=== PATIENT | male | born 1975 | race Caucasian/White ===

== ENCOUNTER → 2019-08-31 | Outpatient (CLI) | payer MEDICARE | END | disposition home or self-care (01) | LOC: LABWHC1 10:05 | PROVIDERS: ATTEND Surgery | DX: Z11.59 Encounter for screening for other viral diseases (principal) ==

== ENCOUNTER 2019-09-03 07:55 | Day surgery (SDC) | payer MEDICARE ==
[2019-08-31 09:29] VITALS: BMI 27.1
[~2019-09-03 07:55] MED LIST: ACETAMINOPHEN TAB 500 MG TAB PO ONE; DEXAMETHASONE SOD PHOSPHATE 10 MG/ML 1 ML VIAL IV ONE; HEPARIN SODIUM,PORCINE 5,000 UNIT/ML 1 ML VIAL SQ ONE; LACTATED RINGERS 1,000 ML IV SCH; LIDOCAINE 1% (10MG/ML) FOR IV START INTRADERMA PRN; SCOPOLAMINE 1.5MG/72HR PATCH TRANSDERM ONE
[2019-09-03 08:36] VITALS: RESP 16
[2019-09-03] MEDS: ONDANSETRON 4 MG/2 ML VIAL IVP ONE ×2 (09:00→11:49)
[2019-09-03] MEDS ORDERED: MIDAZOLAM 2 MG/2 ML VIAL IVP ONE (09:10)
[2019-09-03] MEDS ORDERED: fentaNYL (PF) 50 MCG/ML 2 ML AMP ONE (09:32)
[2019-09-03] MEDS ORDERED: MIDAZOLAM 2 MG/2 ML VIAL ONE (09:32)
[2019-09-03] MEDS ORDERED: PROPOFOL 10 MG/ML 20 ML VIAL IV ONE (09:32)
[2019-09-03] MEDS ORDERED: ROCURONIUM BROMIDE 10 MG/ML 5 ML VIAL IV ONE (09:32)
[2019-09-03] MEDS ORDERED: NEOSTIGMINE 1 MG/ML 10 ML VIAL ONE (09:32)
[2019-09-03] MEDS ORDERED: LIDOCAINE 1% INJ 10MG/ML (20 ML MDV) ONE (09:32)
[2019-09-03] MEDS ORDERED: GLYCOPYRROLATE 0.2 MG/ML 2 ML VIAL ONE (09:32)
[2019-09-03] MEDS ORDERED: ePHEDrine SULFATE/0.9% NACL/PF 50 MG/5 ML SYRINGE IV ONE (09:32)
[2019-09-03] MEDS ORDERED: SUCCINYLCHOLINE CHLORIDE 100 MG/5 ML SYR IV ONE (09:32)
[2019-09-03] MEDS ORDERED: BUPIVACAIN-EPI 0.25%-1:200,000 30 ML VIAL SQ ONE (09:37)
[2019-09-03] MEDS ORDERED: LACTATED RINGERS 1,000 ML IV ONE (10:15)
[2019-09-03 11:32] VITALS: TEMP 97
[2019-09-03] MEDS ORDERED: HYDROcodone/APAP 5-325MG 1 EACH TAB PO PRN (11:45)
[2019-09-03] MEDS: HYDROmorphone 0.5 MG/0.5 ML SYRINGE IVP PRN ×2 (11:45→11:58)
[2019-09-03] MEDS ORDERED: NALOXONE 0.4 MG/ML 1 ML VIAL IV PRN (11:45)
--- NOTE | 2019-09-03 11:49 | P.OP ---
Date of Procedure: 09/03/19 Procedure(s) Performed: PREOPERATIVE DIAGNOSIS: Right scrotal inguinal hernia POSTOPERATIVE DIAGNOSIS: Right indirect scrotal hernia with small direct inguinal hernia PROCEDURE: Right inguinal hernia repair with mesh SURGEON: Patrice EBL: Minimal ANESTHESIA: General COMPLICATIONS: None OPERATIVE PROCEDURE: Patient was placed in the operating table in the supine position and placed under general anesthesia. An oblique incision was made in the 8 groin. Dissection down through the subcutaneous tissues took place using electrocautery. The external oblique fascia was incised using a scalpel. This opening was lengthened using the Metzenbaum scissors. The spermatic cord was encircled with a Urbano drain. The structures were identified and preserved. Careful dissection revealed a very large indirect hernia sac. Significant scarring of the sac was noted. This was carefully dissected away from the spermatic cord structures. Medially the patient had a direct hernia as well. This appeared to be containing a small portion of the bladder. The hernia sac was opened. There was no bowel present within the hernia sac. High ligation of the hernia sac took place using interrupted 0 silk stick tie sutures. The direct hernia was reduced back into the pre-peroneal space. Blunt dissection occurred in the preperitoneal space. The large Prolene hernia system was utilized with the circular portion of the mesh placed in the preperitoneal space and flattened out. The outer oval piece of the mesh was sutured to the pubic tubercle the folding edge of the inguinal ligament and the conjoined tendon using 2-0 Nurolon sutures. A slit was created in the mesh and the mesh was wrapped around the spermatic cord and sutured back to itself. The external oblique was then reapproximated using a running 2-0 Vicryl suture. The subcutaneous tissues were reapproximated using a 3-0 Vicryl sutures. The skin was closed using 4-0 Monocryl sutures. Skin glue was then applied. DISPOSITION: Stable to recovery room
[2019-09-03 12:55] VITALS: BP 137/83; PULSE 67
== END 2019-09-03 13:29 | disposition home or self-care (01) ==
LOC: OR 07:55
PROVIDERS: ATTEND Surgery
DX: K40.90 Unilateral inguinal hernia, without obstruction or gangrene, not specified as recurrent (principal); F41.9 Anxiety disorder, unspecified; E66.9 Obesity, unspecified; F41.0 Panic disorder [episodic paroxysmal anxiety]; F32.9 Major depressive disorder, single episode, unspecified; G47.30 Sleep apnea, unspecified; K21.9 Gastro-esophageal reflux disease without esophagitis; I10 Essential (primary) hypertension; K42.9 Umbilical hernia without obstruction or gangrene; F17.210 Nicotine dependence, cigarettes, uncomplicated; Z68.27 Body mass index [BMI] 27.0-27.9, adult; Z98.84 Bariatric surgery status; Z79.899 Other long term (current) drug therapy; Z79.1 Long term (current) use of non-steroidal anti-inflammatories (NSAID); Z82.49 Family history of ischemic heart disease and other diseases of the circulatory system
CPT/HCPCS: 49505; 88305; C1781; J2250; J1644; J1100; J2710; J0690; J2405; J2001; J3010; J0330; J2704; J1170

== ENCOUNTER 2020-09-28 01:39 | Emergency (ER) | payer MEDICARE ==
[2020-09-28 01:45] VITALS: BP 185/116; PULSE 77; RESP 20; TEMP 97.9
[2020-09-28 02:16] LABS: Appearance,Urine Clear (Clear); Bilirubin,Urine Negative (Negative); Blood,Urine Negative (Negative); Color,Urine Yellow; Glucose,Urine (UA) Negative (Negative); Ketones,Urine Negative (Negative); Leukocyte Esterase,Urine Negative (Negative); Nitrite,Urine Negative (Negative); PH, Urine 5.5 (5.0-8.0); Protein,Urine Negative (Negative); Specific Gravity,Urine 1.017 (1.001-1.035); Urobilinogen,Urine <2.0 mg/dL (<2.0)
[2020-09-28 02:25] LABS: Amphetamine Screen,Urine Not Detected (NotDetected); Barbiturate Screen,Urine Not Detected (NotDetected); Benzodiazepines Screen,Urine Not Detected (NotDetected); Cocaine Screen,Urine Not Detected (NotDetected); Methadone Screen, Urine Not Detected (NotDetected); Opiate Screen,Urine Not Detected (NotDetected); Oxycodone Screen, Urine Not Detected (NotDetected); Phencyclidine Screen,Urine Not Detected (NotDetected); Tricyclic Antidepressant,Urine Not Detected (NotDetected); Urn Cannabinoid Scrn Not Detected (NotDetected)
--- NOTE | 2020-09-28 05:48 | ED ---
Psych HPI - General Chief Complaint: Psychiatric Symptoms Stated Complaint: Mental health Time Seen by Provider: 09/28/20 01:58 Source: patient, police Mode of arrival: ambulatory - History of Present Illness Initial Comments: This patient is a 44-year-old man who is here to have psychiatric evaluation after he had made some suicidal statements while having a conversation with his parents. The patient does admit that he is been having some depression over the past months in relation to the pandemic and the isolation of this cause. He admits he did make some statements that his parents take as being suicidal. He states he does not feel he would harm himself. Complaint: feels depressed -: month(s) Associated Psychiatric Symptoms: depression History of same: Yes Quality: intermittent Improves With: none Worsens With: none Context: significant life stressor - Related Data Home Medications Medication Instructions Recorded Confirmed ALPRAZolam [Xanax] 0.5 mg PO TID PRN 08/31/19 09/03/19 Ascorbic Acid [Vitamin C] 500 mg PO DAILY 08/31/19 09/03/19 Calcium Carbonate [Tums] 500 mg PO DIRECTED PRN 08/31/19 09/03/19 Dextroamphetamine/Amphetamine 20 mg PO DAILY 08/31/19 09/03/19 [Adderall] Gabapentin [Neurontin] 100 mg PO TID PRN 08/31/19 09/03/19 Iron Supplement (Unknown Dose) 1 tab PO DAILY 08/31/19 09/03/19 Multivit-Min/Folic/Vit K/Lycop 1 each PO DAILY 08/31/19 09/03/19 [Men's Multivitamin Tablet] [place]ze[place]-3 Fatty Acids/Fish Oil [Fish 1 each PO DAILY 08/31/19 09/03/19 Oil 1,000 mg Softgel] Potassium (Unknown Dose) 1 tab PO DAILY 08/31/19 09/03/19 Previous Rx's Medication Instructions Recorded oxyCODONE HCL [OxyIR] 5 mg PO Q6H PRN 3 Days #6 tab 09/03/19 Allergies Allergy/AdvReac Type Severity Reaction Status Date / Time No Known Allergies Allergy Verified 09/28/20 01:45 Review of Systems ROS Statement: Those systems with pertinent positive or pertinent negative responses have been documented in the HPI. ROS Other: All systems not noted in ROS Statement are negative. Constitutional: Denies: fever Respiratory: Denies: cough, dyspnea Cardiovascular: Denies: chest pain, palpitations Gastrointestinal: Denies: abdominal pain, vomiting Genitourinary: Denies: dysuria Musculoskeletal: Denies: back pain Neurological: Denies: headache, weakness Psychiatric: Reports: depression. Denies: auditory hallucinations, visual hallucinations, homicidal thoughts, suicidal thoughts Past Medical History Past Medical History: GERD/Reflux Additional Past Medical History / Comment(s): Hx gastric sleeve- states HTN resolved with wt loss, occasional gerd, sciatica pain., Hx phlebitis?., right inguinal hernia. History of Any Multi-Drug Resistant Organisms: None Reported Past Surgical History: Bariatric Surgery, Hernia Repair Additional Past Surgical History / Comment(s): Gastric Sleeve (May) Past Anesthesia/Blood Transfusion Reactions: No Reported Reaction Additional Past Anesthesia/Blood Transfusion Reaction / Comment(s): states they were yelling to wake him up Past Psychological History: Anxiety, Depression Smoking Status: Current every day smoker Past Alcohol Use History: Heavy Past Drug Use History: None Reported - Past Family History Mother Family Medical History: No Reported History General Exam Limitations: no limitations General appearance: alert, in no apparent distress Head exam: Present: atraumatic, normocephalic Eye exam: Present: normal appearance. Absent: scleral icterus, conjunctival injection Respiratory exam: Present: normal lung sounds bilaterally. Absent: respiratory distress, wheezes, rales, rhonchi, stridor Cardiovascular Exam: Present: regular rate, normal rhythm, normal heart sounds. Absent: systolic murmur, diastolic murmur, rubs, gallop GI/Abdominal exam: Present: soft. Absent: tenderness Extremities exam: Present: normal inspection, normal capillary refill Neurological exam: Present: alert Psychiatric exam: Present: normal affect, normal mood. Absent: agitated, anxious, flat affect, manic, homicidal ideation, suicidal ideation Skin exam: Present: warm, dry, intact, normal color. Absent: rash Course Vital Signs 09/28/20 01:40 Temperature 97.9 F Pulse Rate 77 Respiratory 20 Rate Blood Pressure 185/116 O2 Sat by Pulse 100 Oximetry Medical Decision Making - Lab Data Lab Results 09/28/20 Range/Units 01:58 Urine Color Yellow Urine Appearance Clear (Clear) Urine pH 5.5 (5.0-8.0) Ur Specific [place] 1.017 (1.001-1.035) Urine Protein Negative (Negative) Urine Glucose (UA) Negative (Negative) Urine Ketones Negative (Negative) Urine Blood Negative (Negative) Urine Nitrite Negative (Negative) Urine Bilirubin Negative (Negative) Urine Urobilinogen <2.0 (<2.0) mg/dL Ur Leukocyte Esterase Negative (Negative) Urine Opiates Screen Not Detected (NotDetected) Ur Oxycodone Screen Not Detected (NotDetected) Urine Methadone Screen Not Detected (NotDetected) Ur Propoxyphene Screen Not Detected (NotDetected) Ur Barbiturates Screen Not Detected (NotDetected) U Tricyclic Antidepress Not Detected (NotDetected) Ur Phencyclidine Scrn Not Detected (NotDetected) Ur Amphetamines Screen Not Detected (NotDetected) U Methamphetamines Scrn Not Detected (NotDetected) U Benzodiazepines Scrn Not Detected (NotDetected) Urine Cocaine Screen Not Detected (NotDetected) U Marijuana (THC) Screen Not Detected (NotDetected) Disposition Clinical Impression: Mood disorder Disposition: HOME SELF-CARE Condition: Good Instructions (If sedation given, give patient instructions): Mood Disorders (ED) Is patient prescribed a controlled substance at d/c from ED?: No Referrals: Santo Whittington MD [Primary Care Provider] - 1-2 days
== END 2020-09-28 06:08 | disposition home or self-care (01) ==
LOC: EC 01:39
DX: F32.9 Major depressive disorder, single episode, unspecified (principal); F17.200 Nicotine dependence, unspecified, uncomplicated; I10 Essential (primary) hypertension
CPT/HCPCS: 80306; 81003; 82075; 99285